=== PATIENT | male | born 1970 | race Caucasian/White ===

== ENCOUNTER 2023-05-24 14:59 | Emergency (ER) | payer OTHER ==
[2023-05-24] MEDS: Ketorolac 30 MG/ML SDV IM ONE (16:15)
== END 2023-05-24 16:18 | disposition home or self-care (01) ==
LOC: FB.ED 14:59
DX: M71.22 Synovial cyst of popliteal space [Baker], left knee (principal); F17.210 Nicotine dependence, cigarettes, uncomplicated; Z88.8 Allergy status to other drugs, medicaments and biological substances
CPT/HCPCS: 96372; 99283; J1885